=== PATIENT | female | born 1965 | race Caucasian/White ===

== ENCOUNTER → 2019-02-06 | Outpatient (CLI) | payer OTHER ==
--- NOTE | 2019-02-06 14:21 | MM ---
Reason for exam: additional evaluation requested from prior study. Last mammogram was performed 5 years and 9 months ago. History: Patient is postmenopausal. Family history of breast cancer in maternal grandmother at age 50. Benign excisional biopsy of the left breast, 2011. Physical Findings: Nurse did not find any significant physical abnormalities on exam. MG 3D Diag Mammo W/Cad KRISSY Bilateral CC and MLO view(s) were taken. Prior study comparison: May 16, 2013, mammogram. April 17, 2012, mammogram. The breast tissue is heterogeneously dense. This may lower the sensitivity of mammography. There are two 4mm masses, 4cm from nipple one in the upper outer quadrant and one in the lower inner quadrant, ultrasound will be done. There are left upper outer quadrant middle depth calcifications on magnification views, these are pleomorphic measuring 7mm. Biopsy recommended. These results were verbally communicated with the patient and result sheet given to the patient on 02/06/19. ASSESSMENT: Incomplete: need additional imaging evaluation, BI-RAD 0 RECOMMENDATION: Ultrasound of the right breast.
--- NOTE | 2019-02-06 14:26 | USB ---
Reason for exam: additional evaluation requested from abnormal screening. History: Patient is postmenopausal. Family history of breast cancer in maternal grandmother at age 50. Benign excisional biopsy of the left breast, 2011. US Breast Limited RT Left limited breast ultrasound including focal area of concern, retroareolar and axilla demonstrates a 0.4 x 0.4 x 0.3cm oval, complex, cystic lesion at 3 o'clock and a 0.4 x 0.5 x 0.4cm oval, complex, cystic lesion at 11 o'clock. These have subtle post enhancement and appear as complicated cysts in dense fibroglandular tissue. Precautionary 6 month follow up recommended. These results were verbally communicated with the patient and result sheet given to the patient on 02/06/19. ASSESSMENT: Suspicious, BI-RAD 4 RECOMMENDATION: Stereotactic core biopsy of the right breast. Called Dr. Aguilar with mammographic findings and has scheduled an appointment for the patient for 03/14/19 at 7:[address] Solorzano. Biopsy scheduled for 03/14/19 at 8:00. PRELIMINARY REPORT CALLED AND FAXED TO DR. SOLORZANO ON 02/06/19.
== END | disposition home or self-care (01) ==
LOC: RADMAMWWP 07:28
PROVIDERS: ATTEND Family Medicine
DX: R92.8 Other abnormal and inconclusive findings on diagnostic imaging of breast (principal)
CPT/HCPCS: 77062; 77066

== ENCOUNTER → 2019-03-14 | Outpatient (CLI) | payer OTHER ==
[2019-03-14 07:34] VITALS: BP 123/79; PULSE 70; RESP 18; TEMP 98; BMI 25.0
--- NOTE | 2019-03-14 08:08 | P.GSHP ---
History of Present Illness H&P Date: 03/14/19 Chief Complaint: abnormal mammogram/ left breast pain Christianne is a 53-year-old white female who had a routine screening mammogram on . She was seen in consultation for Dr. Robert Aguilar regarding mammographic abnormality noted in the left breast. Radiographically she was noted to have to 4 mm masses in the upper outer quadrant and one in the lower inner quadrant. Additionally in the left breast she was noted to have a 7 mm pleomorphic area of microcalcification. Ultrasound of the left breast was recommended. This revealed 2 small cyst which appears complicated cyst and 6 month follow-up ultrasound of the left breast was recommended. No lesions of concern were documented in the right breast on her bilateral mammogram. The patient has not felt anything of concern in the breast. No dominant masses or nodules of concern. The patient has no complaints of any trauma or infection in the breast. The patient is status post left breast open biopsy approximately 7 years ago, this was benign. The patient is not complaining of any pain in her right breast, however she has intermittent aching pain in the left breast. The pain is throughout the breast. The pain does not radiate. It is intermittent in nature and she is unsure as to what causes it.. She is not complaining of any nipple discharge or skin changes. Patient had a left breast area biopsy approximately 10 years ago. This was benign. The patient drinks approximately 10 cups of coffee per day and 5 cups of tea both are caffeinated. She does not eat chocolate. She smokes 1 pack per day of cigarettes. She is not exposed to secondhand smoke. Family History: maternal grandmother: breast cancer Hormonal History: menarche: 13 , breast fed: yes, first at 19 menopause: hysterectomy at 30, left one ovary, done for endometriosis BCP: 3 years hormones: none Surgical History: 1. Hysterectomy and 1 ovary removed 2. cyst removed form ovaries 3. breast biopsy Medical History: 1. anxiety 2. high cholesterol 3. migrain headaches Social History: smoke: 1/PPD 33 yeayrs alcohol: none drugs: none - Constitutional Constitutional: Denies chills, Denies fever - EENT Eyes: denies blurred vision, denies pain Ears: deny: decreased hearing, tinnitus Ears, nose, mouth and throat: Reports headache - Breasts Breasts: bilateral: as per HPI - Cardiovascular Cardiovascular: Reports high blood pressure, Denies chest pain, Denies shortness of breath - Respiratory Comment: former - Gastrointestinal Comment: discussed need for colonoscopy Gastrointestinal: Reports constipation, Denies abdominal pain, Denies diarrhea, Denies nausea, Denies vomiting - Genitourinary (Female) Genitourinary: Denies dysuria, Denies hematuria - Menstruation Menstruation: Reports postmenopausal - Musculoskeletal Comment: arthritis in her hands Musculoskeletal: Reports myalgias - Integumentary Integumentary: Denies pruritus, Denies rash - Neurological Neurological: Denies numbness, Denies weakness - Psychiatric Psychiatric: Reports anxiety - Endocrine Endocrine: Reports fatigue - Hematologic/Lymphatic Comment: asprin powder for migrains - Allergic/Immunologic Allergic/Immunologic: Reports seasonal allergies Past Medical History Past Medical History: Hyperlipidemia History of Any Multi-Drug Resistant Organisms: MRSA Date of last positivie culture/infection: 2013 MDRO Source:: axilla, right Past Surgical History: Hysterectomy Additional Past Surgical History / Comment(s): Left breast excisional biopsy Past Anesthesia/Blood Transfusion Reactions: No Reported Reaction Past Psychological History: Anxiety Smoking Status: Current every day smoker Past Alcohol Use History: Rare Past Drug Use History: None Reported Medications and Allergies Home Medications Medication Instructions Recorded Confirmed Type Montelukast [Singulair] 10 mg PO DAILY 03/01/19 03/14/19 History Citalopram Hydrobromide 40 mg PO DAILY 03/14/19 03/14/19 History [Citalopram HBr] Simvastatin 40 mg PO DAILY 03/14/19 03/14/19 History Allergies Allergy/AdvReac Type Severity Reaction Status Date / Time No Known Allergies Allergy Verified 03/14/19 07:28 Surgical - Exam Vital Signs Temp Pulse Resp BP Pulse Ox 98 F 70 18 123/79 97 03/14/19 07:28 03/14/19 07:28 03/14/19 07:28 03/14/19 07:28 03/14/19 07:28 BMI 25 - General well developed, well nourished, no distress - Eyes normal ocular movement - ENT normal pinna, normal nares, no hearing loss - Neck no masses, trachea midline, no lymphadectomy, no venous distension - Respiratory normal expansion, normal respiratory effort, clear to percussion, clear to auscultation - Cardiovascular Rhythm: regular Heart Sounds: normal: S1, S2 - Abdomen normal bowel sounds Abdomen: soft, non tender, no guarding, no rigid, no rebound - Integumentary well healed scar left breast upper outer quadrant no rash, no abnormal pigmentation - Neurologic no disoriented, no combative - Musculoskeletal normal gait, normal posture - Psychiatric oriented to time, oriented to person, oriented to place, speech is normal, memory intact Breast examination: Right breast: Multi-positional exam fibrocystic changes, no dominant masses or nodules of concern Right axilla: No adenopathy of concern Left breast: Slightly smaller than right breast, well-healed scar upper outer quadrant multiple positional exam no dominant masses or nodules of concern Left axilla: No adenopathy of concern Bra 38 c, Ptosis grade 1/2 Results Mammogram and ultrasound results reviewed Assessment and Plan Assessment: Impression: 1. abnormal mammogram left bresat 2. abnormal ultrasound left breast 3. HTN 4. anxiety 5. prior left breast open biopsy, and left brest stero biopsy 6. scar tissue left breast 7. symptomatic asymetry of the bresat 8. breast pain at times in left breast Plan: 1. repeat left breast ultrasound in 6 months 2. left breast stero biopsy 3. decrease/ stop caffiene intake 4.consider xanax prior to stero biopsy 5. stop smoking Procedure stereo biopsy was discussed with the patient. Risk and benefits including inability to access the lesion, bleeding, and infection were discussed. The patient understands and wishes to proceed. Additionally I discussed causes of breast pain which could include her caffeine intake and have recommended decreasing this. Patient will also be counseled to stop smoking. The patient will have a repeat left breast ultrasound in 6 months. We will further recommend regarding the left breast after results of stereo biopsy obtained. CC: Dr. Robert Aguilar Approximately 35 minutes spent in encounter with greater than 50% face time.
== END | disposition home or self-care (01) ==
LOC: WWCWWP 07:05
PROVIDERS: ATTEND Surgery
DX: Z53.9 Procedure and treatment not carried out, unspecified reason (principal)

== ENCOUNTER → 2019-03-14 | Day surgery (SDC) | payer OTHER ==
[2019-03-14 07:24] VITALS: RESP 16; BMI 24.9
--- NOTE | 2019-03-14 08:37 | P.OP ---
Date of Procedure: 03/14/19 Preoperative Diagnosis: Microcalcifications of concern left breast Postoperative Diagnosis: same Procedure(s) Performed: Left breast stereotactic core biopsy Anesthesia: local Surgeon: Lubna Solorzano Estimated Blood Loss (ml): 1 Pathology: other (Breast tissue, microcalcifications present in specimen) Condition: stable Disposition: same day Indications for Procedure: Pleomorphic microcalcifications left breast Operative Findings: Breast tissue with microcalcifications present in specimen Description of Procedure: The patient is a 53-year-old white female with a routine mammogram showing microcalcifications of concern in the left breast. Risks and benefits of stereotactic core biopsy were discussed with the patient and she wished to proceed. The patient was taken to the stereotactic core room and after she had taken Xanax she was positioned on the stereotactic table. Cloth Laminating Supervisor film was obtained. The area of concern in the left breast was identified. The approach was lateral to medial. The area of concern was targeted. The breast was prepped using Betadine. 20 mL of 1% lidocaine, 10 of which had epinephrine were utilized to anesthetize the area. A 9-gauge vacuum-assisted core rotating biopsy needle was driven to the correct coordinates. The needle was fired and post-fire views revealed that the needle was in the correct location. After approximately 2 samples the patient stated she had pain and an additional 8 mL of 1% lidocaine plain was injected into the area at the tip of the needle. The needle was then able to be rotated with out pain and additional core samples were obtained. Approximately 12 samples were obtained. Radiograph of the specimen revealed the microcalcifications of concern had been sampled. A top straw hat washer operator was placed. Radiograph revealed this was in the correct l ocation. The patient tolerated procedure in stable condition. Specimen was sent for pathology. The patient will follow-up with Dr. Harper next week.
[2019-03-14 08:45] VITALS: BP 133/83; PULSE 69; TEMP 97.6
--- NOTE | 2019-03-15 10:59 | MM ---
Stereotactic core biopsy left breast. HISTORY: Microcalcifications. The calcifications in question within the left breast were targeted by the undersigned. The examination was performed by the surgeon. Specimen radiograph demonstrates numerous calcifications within the specimen submitted. Post procedural mammogram demonstrates appropriate deployment of radiopaque clip marker. The patient tolerated the procedure well and left the department in stable condition. Pathology results are pending. IMPRESSION: Successful stereotactic core biopsy left breast with pathology results pending. Pathology Results: Benign LEFT BREAST, STEREOTACTIC CORE BIOPSY: Fibrocystic changes including sclerosing adenosis with calcifications, fibrosis, and cysts. Recommendation Follow up mammogram of the left breast in 6 months. SATYA
== END ==
LOC: RADMAMWWP 07:03
PROVIDERS: ATTEND Surgery
DX: N60.12 Diffuse cystic mastopathy of left breast (principal); N60.22 Fibroadenosis of left breast
CPT/HCPCS: 88305; 19081; A4648; J2001

== ENCOUNTER → 2019-03-21 | Outpatient (CLI) | payer OTHER ==
[2019-03-21 08:44] VITALS: BP 135/84; PULSE 81; RESP 18; TEMP 98.1; BMI 23.3
--- NOTE | 2019-03-21 08:52 | P.PN ---
Subjective Progress Note Date: 03/21/19 Principal diagnosis: Patient is status post left breast stereotactic core biopsy on [id number]. Pathology revealed fibrocystic changes including sclerosing adenosis with calcifications, fibrosis, and cysts. The patient tolerated the procedure without difficulty. She initially had some discomfort in the breast but this is resolved. He did develop some ecchymosis. Not had any fever or chills. The patient on her initial evaluation had also been recommended to have a precautionary right breast radiographic stuy at 6 months time from January 2019. Objective - Constitutional General appearance: Present: average body habitus - EENT Eyes: Present: EOMI ENT: Present: hearing grossly normal - Neck Neck: Present: normal ROM - Respiratory Respiratory: bilateral: CTA - Cardiovascular Rhythm: regular Heart sounds: normal: S1, S2 - Integumentary Integumentary: Present: normal turgor - Musculoskeletal Musculoskeletal: Present: gait normal - Psychiatric Psychiatric: Present: A&O x's 3, appropriate affect, intact judgment & insight - Additional findings Additional findings: Left breast: Biopsy site no evidence of infection Mild ecchymosis No hematoma Assessment and Plan Assessment: Pressure: 1. Status post left breast sterotactic core biopsy /benign 2. mild echymosis at the biopsy site 3. Abnormal right breast radiograph [id number]/percussion and a 6 month evaluation recommended for the right side Plan: 1. Repeat left breast mammogram in 6 months with physician exam at that time 2. Patient to call sooner if anything of concern 3. cold pack to area of biopsy if patient wishes/ mild echymosis 4. right breast mammogram and ultrasound at 6 months CC: Dr. Robert Aguilar
== END ==
LOC: WWCWWP 08:34
PROVIDERS: ATTEND Surgery
DX: Z53.9 Procedure and treatment not carried out, unspecified reason (principal)